=== PATIENT | male | born 1995 ===

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

== ENCOUNTER 2018-04-26 19:56 | Emergency (ER) | payer OTHER ==
[2018-04-26 19:57] VITALS: BMI 25.0
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
[2018-04-26 21:46] VITALS: BP 140/84; PULSE 80; RESP 19; TEMP 98.7
[2018-04-26 21:50] VITALS: O2SAT 99
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
== END 2018-04-26 21:46 | disposition home or self-care (01) ==
LOC: C.ER 19:56
DX: S09.90XA Unspecified injury of head, initial encounter (principal); S29.9XXA Unspecified injury of thorax, initial encounter; Y08.89XA Assault by other specified means, initial encounter

== ENCOUNTER 2018-06-10 17:01 | Emergency (ER) | payer OTHER, BC | END 2018-06-10 20:47 | disposition home or self-care (01) | LOC: C.ER 17:01 ==